=== PATIENT | male | born 1985 | race Caucasian/White ===

== ENCOUNTER 2022-02-11 13:45 | Emergency (ER) | payer SELFPAY ==
[~2022-02-11] VITALS: Ht 188 cm; Wt 106.0 kg
[2022-02-11] MEDS ORDERED: CEPHALEXIN 250MG CAPSULE PO ONE (14:45)
[2022-02-11] MEDS ORDERED: KETOROLAC 30MG/ML VIAL IM ONE (14:45)
[2022-02-11] MEDS ORDERED: IBUP-1525 MT (14:59)
[2022-02-11] MEDS ORDERED: CEPH500C2 MT (14:59)
[2022-02-11 15:31] VITALS: BP 161/98
[2022-02-11 15:53] LABS: CLARITY URINE CLEAR (CLEAR); COLOR URINE YELLOW (YELLOW); KETONES URINE NEGATIVE (NEGATIVE); LEUKOCYTE ESTERASE URINE NEGATIVE (NEGATIVE); NITRITE URINE NEGATIVE (NEGATIVE); OCCULT BLOOD URINE NEGATIVE (NEGATIVE); PH URINE 6.5 (4.5-8.0); PROTEIN URINE NEGATIVE (NEGATIVE)
== END 2022-02-11 15:32 | disposition home or self-care (01) ==
LOC: ER 13:45
DX: N47.1 Phimosis (principal)
CPT/HCPCS: 81003; 96372; 99283; J1885